=== PATIENT | male | born 1955 | race Caucasian/White ===

== ENCOUNTER 2016-06-10 17:39 | Emergency (ER) | payer MEDICARE | END 2016-06-10 19:50 | disposition home or self-care (01) | LOC: ER 17:39 | DX: J45.909 Unspecified asthma, uncomplicated (principal); I10 Essential (primary) hypertension; F17.210 Nicotine dependence, cigarettes, uncomplicated; Z88.0 Allergy status to penicillin | CPT/HCPCS: 36415; 87502; 96374 ==